=== PATIENT | female | born 1990 | race Caucasian/White ===

== ENCOUNTER 2020-01-14 20:50 | Observation (INO) | payer OTHER ==
[~2020-01-14] VITALS: Ht 170.2 cm; Wt 69.4 kg
[2020-01-14] MEDS ORDERED: TERBUTALINE SULFATE 1 MG/ML VIAL SUBCUT PRN (22:00)
== END 2020-01-14 23:20 | disposition home or self-care (01) ==
LOC: SPU 20:50
PROVIDERS: ADMIT Specialist; ATTEND Specialist
DX: O62.9 Abnormality of forces of labor, unspecified (principal); Z3A.23 23 weeks gestation of pregnancy
CPT/HCPCS: 96372; G0378; J3105

== ENCOUNTER 2020-04-17 21:29 | Observation (INO) | payer OTHER ==
[~2020-04-17] VITALS: Ht 170.2 cm; Wt 69.9 kg
[2020-04-17] MEDS ORDERED: TERBUTALINE SULFATE 1 MG/ML VIAL SUBCUT ONE (22:30)
== END 2020-04-18 00:15 | disposition home or self-care (01) ==
LOC: SPU 21:29
PROVIDERS: ADMIT Specialist; ATTEND Specialist
DX: O62.9 Abnormality of forces of labor, unspecified (principal); Z3A.35 35 weeks gestation of pregnancy
CPT/HCPCS: 96372; G0378; J3105; 59025; 81002-TC

== ENCOUNTER 2020-05-01 18:27 | Outpatient (CLI) | payer OTHER, SELFPAY | END 2020-05-01 19:28 | disposition home or self-care (01) | LOC: SLB 18:27 | PROVIDERS: ATTEND Specialist | DX: Z20.822 Contact with and (suspected) exposure to COVID-19 (principal) | CPT/HCPCS: C9803; U0003 ==